=== PATIENT | male | born 1960 | race Caucasian/White ===

== ENCOUNTER 2021-05-06 13:25 | Emergency (ER) | payer MEDICARE, OTHER ==
[2021-05-06] MEDS ORDERED: Lactated Ringers 1,000 ML IV ONE (13:26)
[2021-05-06] MEDS ORDERED: Midazolam 1 MG/ML 2 ML SDV ONE (13:40)
[2021-05-06] MEDS ORDERED: fentaNYL 100 MCG/2 ML SDV ONE (13:40)
[2021-05-06] MEDS ORDERED: Sodium Chloride 0.9% 1,000 ML IV SCH (13:42)
[2021-05-06] MEDS ORDERED: fentaNYL 100 MCG/2 ML SDV IVPUSH ONE (14:27)
[2021-05-06] MEDS ORDERED: Midazolam 1 MG/ML 2 ML SDV IVPUSH ONE (14:27)
[2021-05-06 15:04] LABS: CORONAVIRUS COVID-19 NAA NEGATIVE (NEGATIVE)
[2021-05-06 16:10] VITALS: BP 108/70; PULSE 64
[2021-05-06] MEDS ORDERED: QUEtiapine 25 MG Tab PO ONE (16:15)
[2021-05-06] MEDS ORDERED: Potassium Chloride 20 MEQ Tab.ER PO ONE (16:58)
[2021-05-06] MEDS ORDERED: Amiodarone 150 MG/3 ML SDV ONE (20:00)
== END 2021-05-06 18:10 ==
LOC: JD.ED 13:25
DX: I47.2 Ventricular tachycardia (principal); E87.6 Hypokalemia; R77.8 Other specified abnormalities of plasma proteins; I48.91 Unspecified atrial fibrillation; E78.00 Pure hypercholesterolemia, unspecified; M10.9 Gout, unspecified; Z86.73 Personal history of transient ischemic attack (TIA), and cerebral infarction without residual deficits; Z79.01 Long term (current) use of anticoagulants; Z79.899 Other long term (current) drug therapy; Z20.822 Contact with and (suspected) exposure to COVID-19
CPT/HCPCS: 0240U; 36415; 70450; 70450-26; 71045; 71045-26; 80053; 83735; 84443; 84484; 85025; 85610; 85730; 92960; 93005; 93010; 96374; 96375; 99285; 99285-25; A9270-GY; J0282; J2250; J3010; J7120

== ENCOUNTER 2021-05-13 09:38 | Emergency (ER) | payer MEDICARE, OTHER ==
[2021-05-13] MEDS ORDERED: Phytonadione 10 MG in Sodium Chloride 0.9% 50 ML IV ONE (09:55)
[2021-05-13] MEDS ORDERED: fentaNYL 100 MCG/2 ML SDV IVPUSH ONE ×2 (10:21→17:39)
[2021-05-13] MEDS ORDERED: Acetaminophen 325 MG Tab PO ONE (12:35)
== END 2021-05-13 18:00 | disposition home or self-care (01) ==
LOC: JD.ED 09:38
DX: I62.00 Nontraumatic subdural hemorrhage, unspecified (principal); I48.91 Unspecified atrial fibrillation; E78.00 Pure hypercholesterolemia, unspecified; Z79.01 Long term (current) use of anticoagulants; Z79.899 Other long term (current) drug therapy; Z86.73 Personal history of transient ischemic attack (TIA), and cerebral infarction without residual deficits; Z20.822 Contact with and (suspected) exposure to COVID-19
CPT/HCPCS: 36415; 70450; 80053; 85025; 85610; 86900; 86901; 93005; 96365; 96375; 96376; 99285; A9270; J3010; J3430; U0002; 93010